=== PATIENT | female | born 1935 | race Caucasian/White ===

== ENCOUNTER → 2016-08-05 | Outpatient (REF) | payer MEDICARE | LOC: M LAB REF 08-04 16:38 | PROVIDERS: ATTEND Nurse Practitioner Adult Health | DX: E83.52 Hypercalcemia (principal) ==

== ENCOUNTER → 2017-11-25 | Outpatient (REF) | payer MEDICARE ==
[2017-11-25 13:31] LABS: PHOSPHORUS LEVEL 3.3 MG/DL (2.5-4.9); URIC ACID 9.6 MG/DL (2.6-6.0)
== END ==
LOC: M LAB REF 12:44
DX: N18.3 Chronic kidney disease, stage 3 (moderate) (principal); M10.341 Gout due to renal impairment, right hand
CPT/HCPCS: 84100

== ENCOUNTER → 2018-02-09 | Outpatient (REF) | payer MEDICARE ==
[2018-02-09 12:32] LABS: URIC ACID 7.3 MG/DL (2.6-6.0)
[2018-02-10 17:49] LABS: FERRITIN 144 NG/ML (8-252); IRON (FE) 61 UG/DL (50-170); PERCENT SATURATION 22.5 % (13.2-45.0); TOTAL IRON BINDING CAPACITY 271 UG/DL (250-450)
== END ==
LOC: M LAB REF 12:01
DX: N18.9 Chronic kidney disease, unspecified (principal); M10.341 Gout due to renal impairment, right hand; D63.1 Anemia in chronic kidney disease
CPT/HCPCS: 83550

== ENCOUNTER → 2018-05-13 | Outpatient (REF) | payer MEDICARE | LOC: M LAB REF 11:56 | PROVIDERS: ATTEND Nurse Practitioner Adult Health | DX: N18.4 Chronic kidney disease, stage 4 (severe) (principal); D63.1 Anemia in chronic kidney disease ==

== ENCOUNTER → 2018-06-02 | Outpatient (REF) | payer MEDICARE ==
[2018-06-02 18:58] LABS: FREE T4 1.44 NG/DL (0.76-1.46); THYROID STIMULATING HORMONE 2.88 uIU/ML (0.358-3.740)
== END ==
LOC: M LAB REF 17:18
PROVIDERS: ATTEND Internal Medicine Nephrology
DX: E03.9 Hypothyroidism, unspecified (principal)

== ENCOUNTER → 2018-06-09 | Outpatient (CLI) | payer MEDICARE ==
--- NOTE | 2018-06-09 13:37 | REP ---
Urinary tract sonography: History: Chronic kidney disease stage IV. No comparison imaging. Findings: Scanning at the level of the urinary bladder shows smooth bladder kwong. No extra vesicle lesion is seen. Renal cortical echogenicity pattern is normal and contours are smooth on both sides. Limited visualization of the kidneys is seen due to bowel gas on the left. Atrophy is noted on the right. No hydronephrosis is seen on either side. There is a large shadowing staghorn calculus in the right kidney measuring up to 4.9 cm in greatest diameter. No visible hydro. No mass lesion. There is a cyst in the lower pole of the left kidney measuring 1.4 cm in diameter. Left renal dimensions are 10.5 x 5.2 x 3.6 cm. The right kidney measures 8.1 x 3.8 x 3.5 cm. 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 No hydronephrosis seen. Small cyst left kidney. Electronically Signed by Humberto Dumont MD 06/09/2018 01:45 P
== END ==
LOC: M RAD 10:58
PROVIDERS: ATTEND Internal Medicine Nephrology
DX: N26.1 Atrophy of kidney (terminal) (principal); N20.0 Calculus of kidney; N28.1 Cyst of kidney, acquired; N18.4 Chronic kidney disease, stage 4 (severe)

== ENCOUNTER → 2018-07-01 | Outpatient (REF) | payer MEDICARE ==
[2018-07-01 18:45] LABS: PERCENT SATURATION 12.1 % (13.2-45.0)
== END ==
LOC: M LAB REF 16:50
PROVIDERS: ATTEND Internal Medicine Nephrology
DX: D50.9 Iron deficiency anemia, unspecified (principal)

== ENCOUNTER → 2019-04-14 | Outpatient (REF) | payer MEDICARE | LOC: M LAB REF 17:10 | PROVIDERS: ATTEND Internal Medicine Nephrology | DX: N39.0 Urinary tract infection, site not specified (principal) ==

== ENCOUNTER → 2019-06-16 | Outpatient (REF) | payer MEDICARE | LOC: M LAB REF 12:28 | PROVIDERS: ATTEND Nurse Practitioner Adult Health | DX: E83.52 Hypercalcemia (principal) ==

== ENCOUNTER → 2020-12-13 | Outpatient (REF) | payer MEDICARE | LOC: M LAB REF 13:14 | PROVIDERS: ATTEND Nurse Practitioner Family | DX: N39.0 Urinary tract infection, site not specified (principal) ==

== ENCOUNTER → 2021-08-07 | Outpatient (REF) | payer MEDICARE ==
[2021-08-07 19:23] LABS: BACTERIA, URINE AUTO NEGATIVE (NEGATIVE); MUCUS, URINE SMALL (NEGATIVE); RBC, URINE AUTO 0 /HPF (0-3); SQUAMOUS EPITHELIAL CELL UR AU 2 /HPF (0-6); WBC, URINE AUTO TNTC /HPF (0-3)
== END ==
LOC: M LAB REF 16:12
PROVIDERS: ATTEND Nurse Practitioner Adult Health
DX: E11.21 Type 2 diabetes mellitus with diabetic nephropathy (principal); D50.9 Iron deficiency anemia, unspecified; R31.9 Hematuria, unspecified

== ENCOUNTER → 2022-01-12 | Outpatient (CLI) | payer MEDICARE | LOC: M WUC 11:05 | PROVIDERS: ATTEND Physician Assistant | DX: R05.1 Acute cough (principal); R06.02 Shortness of breath; M51.34 Other intervertebral disc degeneration, thoracic region; I70.0 Atherosclerosis of aorta; I77.810 Thoracic aortic ectasia ==

== ENCOUNTER → 2022-10-09 | Outpatient (REF) | payer MEDICARE | LOC: M LAB REF 17:19 | PROVIDERS: ATTEND Nurse Practitioner Family | DX: N39.0 Urinary tract infection, site not specified (principal) ==

== ENCOUNTER → 2023-02-09 | Outpatient (REF) | payer MEDICARE ==
[2023-02-09 18:59] LABS: FERRITIN 17.9 NG/ML (7.3-270.7)
[2023-02-09 19:00] LABS: PERCENT SATURATION 12.6 % (13.2-45.0)
== END ==
LOC: M LAB REF 16:47
PROVIDERS: ATTEND Nurse Practitioner Family
DX: D50.9 Iron deficiency anemia, unspecified (principal); N39.0 Urinary tract infection, site not specified; E83.52 Hypercalcemia

== ENCOUNTER → 2023-06-10 | Outpatient (REF) | payer MEDICARE ==
[2023-06-10 18:51] LABS: FERRITIN 10.4 NG/ML (7.3-270.7)
== END ==
LOC: M LAB REF 17:10
PROVIDERS: ATTEND Nurse Practitioner Family
DX: D50.9 Iron deficiency anemia, unspecified (principal)

== ENCOUNTER 2023-06-21 07:19 | Outpatient (CLI) | payer MEDICARE ==
[~2023-06-21] VITALS: Ht 152.4 cm; Wt 79.5 kg
[~2023-06-21 07:19] MED LIST: ALBUTEROL SULFATE 2.5MG/0.5ML INH NEB SOLN INH PRN; EPINEPHrine INJ 1 MG/ML 1ML AMP IM PRN; diphenhydrAMINE 50MG/ML VIAL IV PRN; methylPREDNISolone 125MG 2ML VIAL IV PRN
[2023-06-21 07:30] VITALS: BP 171/82; O2SAT 99
[2023-06-21] MEDS: IRON SUCROSE 25 MG in NS 23.75 ML IV ONE (07:48)
[2023-06-21] MEDS ORDERED: NS 1,000 ML IV SCH (08:00)
[2023-06-21] MEDS: IRON SUCROSE 475 MG in NS 250 ML IV ONE (08:45)
[2023-06-21] MEDS ORDERED: FAMO40TA3 PO (08:56)
[2023-06-21] MEDS ORDERED: ALLO100T PO (08:56)
[2023-06-21] MEDS ORDERED: DILT120C78 PO (08:56)
[2023-06-21] MEDS ORDERED: FURO40TA2 PO (08:56)
[2023-06-21] MEDS ORDERED: ACET325C5 PO (08:56)
[2023-06-21] MEDS ORDERED: ATOR1TAB21 PO (08:56)
[2023-06-21] MEDS ORDERED: ASPI81TA26 PO (08:56)
[2023-06-21] MEDS ORDERED: SPIR50TA4 PO (08:56)
[2023-06-21 09:45] VITALS: BP 165/73; O2SAT 98
[2023-06-21 10:45] VITALS: BP 148/80; O2SAT 97
[2023-06-21 11:45] VITALS: BP 161/81; O2SAT 98
[2023-06-21 12:44] VITALS: BP 150/76; O2SAT 97
== END 2023-06-21 13:05 ==
LOC: M INFU 07:19
PROVIDERS: ATTEND Nurse Practitioner Family
DX: D50.9 Iron deficiency anemia, unspecified (principal)
CPT/HCPCS: 96365; 96366; J1756

== ENCOUNTER 2023-07-05 07:55 | Outpatient (CLI) | payer MEDICARE ==
[~2023-07-05] VITALS: Ht 152.4 cm; Wt 79.5 kg
[~2023-07-05 07:55] MED LIST changes: +ACET325C5 PO; +ALLO100T PO; +ASPI81TA26 PO; +ATOR1TAB21 PO; +DILT120C78 PO; +FAMO40TA3 PO; +FURO40TA2 PO; +SPIR50TA4 PO
[2023-07-05] MEDS ORDERED: NS 1,000 ML IV SCH (08:00)
[2023-07-05 08:11] VITALS: BP 136/63; O2SAT 99
[2023-07-05] MEDS: IRON SUCROSE 500 MG in NS 250 ML OVER 4 HRS IV ONE (08:39)
[2023-07-05 12:48] VITALS: BP 137/67; O2SAT 98
== END 2023-07-05 13:45 | disposition home or self-care (01) ==
LOC: M INFU 07:55
PROVIDERS: ATTEND Nurse Practitioner Family
DX: D50.9 Iron deficiency anemia, unspecified (principal)
CPT/HCPCS: 96365; 96366; J1756

== ENCOUNTER → 2023-08-06 | Outpatient (REF) | payer MEDICARE ==
[~2023-08-06] MED LIST changes: -ALBUTEROL SULFATE 2.5MG/0.5ML INH NEB SOLN INH PRN; -EPINEPHrine INJ 1 MG/ML 1ML AMP IM PRN; -diphenhydrAMINE 50MG/ML VIAL IV PRN; -methylPREDNISolone 125MG 2ML VIAL IV PRN
[2023-08-06 18:50] LABS: PERCENT SATURATION 12.2 % (13.2-45.0)
[2023-08-06 18:53] LABS: FERRITIN 162.4 NG/ML (7.3-270.7)
== END ==
LOC: M LAB REF 17:22
PROVIDERS: ATTEND Nurse Practitioner Family
DX: D50.9 Iron deficiency anemia, unspecified (principal)

== ENCOUNTER → 2023-11-11 | Outpatient (REF) | payer MEDICARE ==
[2023-11-11 19:15] LABS: PERCENT SATURATION 13.5 % (13.2-45.0)
[2023-11-11 19:18] LABS: FERRITIN 84.4 NG/ML (7.3-270.7)
== END ==
LOC: M LAB REF 17:28
PROVIDERS: ATTEND Nurse Practitioner Family
DX: D50.9 Iron deficiency anemia, unspecified (principal)

== ENCOUNTER → 2024-04-04 | Outpatient (REF) | payer MEDICARE ==
[2024-04-04 17:21] LABS: ALBUMIN 2.6 G/DL (3.2-5.2); BILIRUBIN,TOTAL 0.3 MG/DL (0.3-1.2); CALCIUM LEVEL 9.4 MG/DL (8.3-10.6); CHOLESTEROL RISK RATIO 2.76 (<5); CREATININE FOR GFR 1.38 MG/DL (0.55-1.30); GLOMERULAR FILTRATION RATE 38.3 (>32); HDL CHOLESTEROL 32.2 MG/DL (>40); LDL CHOLESTEROL 38.2 MG/DL (<100); NON-HDL-C 56.8 MG/DL; POTASSIUM SERUM 4.2 MMOL/L (3.5-5.1); TOTAL PROTEIN 6.6 G/DL (5.7-8.2)
[2024-04-04 17:25] LABS: FERRITIN 82.9 NG/ML (7.3-270.7); THYROID STIMULATING HORMONE 3.562 uIU/ML (0.55-4.78)
[2024-04-04 17:26] LABS: FREE T4 1.2 NG/DL (0.89-1.76)
[2024-04-04 17:27] LABS: FOLATE 15.1 NG/ML (>5.4); HEMOGLOBIN A1c 4.9 % (4.0-6.0)
== END ==
LOC: M LAB REF 16:43
PROVIDERS: ATTEND Registered Nurse
DX: I12.9 Hypertensive chronic kidney disease with stage 1 through stage 4 chronic kidney disease, or unspecified chronic kidney disease (principal); D51.9 Vitamin B12 deficiency anemia, unspecified; D63.1 Anemia in chronic kidney disease; R00.0 Tachycardia, unspecified; E78.00 Pure hypercholesterolemia, unspecified; E11.9 Type 2 diabetes mellitus without complications

== ENCOUNTER → 2024-07-04 | Outpatient (REF) | payer MEDICARE, MEDICAID | LOC: M LAB REF 16:53 | PROVIDERS: ATTEND Nurse Practitioner Family | DX: N39.0 Urinary tract infection, site not specified (principal) ==

== ENCOUNTER → 2024-08-22 | Outpatient (REF) | payer MEDICARE, MEDICAID ==
[2024-08-22 19:11] LABS: PERCENT SATURATION 11.4 % (13.2-45.0)
== END ==
LOC: M LAB REF 17:07
PROVIDERS: ATTEND Nurse Practitioner Family
DX: D50.9 Iron deficiency anemia, unspecified (principal)